=== PATIENT | female | born 1965 | race Caucasian/White ===

== ENCOUNTER 2020-11-02 17:27 | Outpatient (CLI) | payer BC ==
[2020-11-02 23:43] LABS: SARS-CoV-2 PCR by NAA Not Detected (NotDetected)
== END 2020-11-02 17:28 | disposition home or self-care (01) ==
LOC: CSHLAB 17:27
PROVIDERS: ATTEND Podiatrist Foot & Ankle Surgery
DX: Z20.822 Contact with and (suspected) exposure to COVID-19 (principal)
CPT/HCPCS: 87635; U0003; U0005

== ENCOUNTER 2020-11-05 08:49 | Day surgery (SDC) | payer BC ==
[2020-11-04 15:24] VITALS: BMI 24.9
[2020-11-05 10:27] LABS: #Basophils 0.1 10x3/uL (0.0-0.2); #Eosinphils 0.1 10x3/uL (0.0-0.5); #Monocytes 0.6 10x3/uL (0.0-1.1); #Neutrophils 5.4 10x3/uL (1.5-8.4); %Basophils 0.6 % (0.0-2.0); %Eosinophils 1.8 % (0.0-6.0); %Lymphocytes 21.8 % (18.0-47.0); %Monocytes 7.6 % (0.0-10.0); %Neutrophils 67.9 % (40.0-75.0); Hemoglobin 14.6 g/dL (12.0-15.5); Mean Corpuscular HGB CONC 33.1 g/dL (32.0-36.0); Mean Corpuscular Hemoglobin 32.2 pg (27.0-33.0); Mean Corpuscular Volume 97.1 fl (81.6-98.3); Mean Platelet Volume 9.6 fl (7.4-10.4); Platelet Count 376 10x3/uL (150-450); RBC Distribution Width 12.8 % (11.5-14.5); Red Blood Cell (RBC) Count 4.54 10x6/uL (3.90-5.03); White Blood Cell (WBC) Count 7.9 10x3/uL (3.5-10.5)
[2020-11-05] MEDS ORDERED: Lidocaine 1% MPF 2 ML VIAL ONE (10:41)
[2020-11-05 10:42] LABS: Anion Gap 10 mmol/L (10-20); BUN (Urea Nitrogen) 14 mg/dL (9.8-20.1); Calc. Creatinine Clearance 87 mL/min (70-130); Calcium 8.8 mg/dL (7.8-10.44); Carbon Dioxide 29 mmol/L (22-29); Chloride 103 mmol/L (98-107); Glucose 96 mg/dL (70-105); Potassium 4.2 mmol/L (3.5-5.1); Sodium 138 mmol/L (136-145)
[2020-11-05] MEDS ORDERED: Midazolam HCl 2 mg/2 ml Vial ONE ×2 (10:57→10:59)
[2020-11-05] MEDS ORDERED: Scopolamine 1.5 mg/72 hour Patch ONE (10:57)
[2020-11-05] MEDS ORDERED: Ondansetron PF 4 MG/2 ML Vial ONE (10:59)
[2020-11-05] MEDS ORDERED: Dexamethasone 20 MG/5 ML VIAL ONE (10:59)
[2020-11-05] MEDS ORDERED: PROPOFOL 20 ML ONE (10:59)
[2020-11-05] MEDS ORDERED: Fentanyl 100 MCG/2 ML VIAL ONE (10:59)
[2020-11-05] MEDS ORDERED: Lidocaine 1% PF 5 ML VIAL ONE (10:59)
[2020-11-05] MEDS ORDERED: Ketorolac Tromethamine 30 MG/ML VIAL ONE (11:07)
[2020-11-05] MEDS ORDERED: Neomycin-Polymyxin 1 ML AMP ONE (11:13)
[2020-11-05] MEDS ORDERED: Bupivacaine PF 0.5% 30 ML VIAL ONE (11:13)
[2020-11-05] MEDS ORDERED: CEFAZOLIN 1 GM VIAL ONE (11:22)
[2020-11-05] MEDS ORDERED: PHENYLEPHRINE-NS 100 MCG/ML 10 ML SYRINGE ONE (11:57)
[2020-11-05] MEDS ORDERED: ePHEDrine 50 MG/ML VIAL ONE (11:59)
== END 2020-11-05 15:04 | disposition home or self-care (01) ==
LOC: CSHSDC 08:49
PROVIDERS: ATTEND Podiatrist Foot & Ankle Surgery
PROC: 0QSN04Z Reposition Right Metatarsal with Internal Fixation Device, Open Approach (ICD-10-PCS; principal; 2020-11-05)
PROC: 0QBP0ZZ Excision of Left Metatarsal, Open Approach (ICD-10-PCS; principal; 2020-11-05)
DX: M20.11 Hallux valgus (acquired), right foot (principal); M25.775 Osteophyte, left foot; T84.84XA Pain due to internal orthopedic prosthetic devices, implants and grafts, initial encounter; D16.32 Benign neoplasm of short bones of left lower limb
CPT/HCPCS: 36415; 80048; 85025; C1713; J0690; J1100; J1885; J2250; J2405; J2704; J3010; J3490; S0020

== ENCOUNTER 2022-11-16 09:58 | Outpatient (CLI) | payer BC | END 2022-11-16 09:59 | disposition home or self-care (01) | LOC: CSHMAMMO 09:58 | PROVIDERS: ATTEND Obstetrics & Gynecology | DX: Z12.31 Encounter for screening mammogram for malignant neoplasm of breast (principal); R92.1 Mammographic calcification found on diagnostic imaging of breast; Z91.89 Other specified personal risk factors, not elsewhere classified; Z80.3 Family history of malignant neoplasm of breast | CPT/HCPCS: 77063; 77067 ==

== ENCOUNTER 2024-07-22 19:50 | Outpatient (CLI) | payer BC | END 2024-07-22 19:51 | disposition home or self-care (01) | LOC: CJX 19:50 | PROVIDERS: ATTEND Student in an Organized Health Care Education/Training Program | DX: J40 Bronchitis, not specified as acute or chronic (principal) | CPT/HCPCS: 71046 ==